=== PATIENT | male | born 1980 | race Caucasian/White ===

== ENCOUNTER 2016-08-21 22:39 | Emergency (ER) | payer MEDICAID, OTHER ==
[2016-08-21 22:40] VITALS: BMI 28.6
[2016-08-21 23:21] VITALS: TEMP 98.4
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
[2016-08-22 03:43] VITALS: BP 130/88; PULSE 85; RESP 16; O2SAT 98
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
== END 2016-08-22 03:51 | disposition home or self-care (01) ==
LOC: ED 22:39
DX: S16.1XXA Strain of muscle, fascia and tendon at neck level, initial encounter (principal); V49.59XA Passenger injured in collision with other motor vehicles in traffic accident, initial encounter; Y92.488 Other paved roadways as the place of occurrence of the external cause